=== PATIENT | male | born 1970 | race Caucasian/White ===

== ENCOUNTER 2016-11-09 19:54 | Emergency (ER) | payer OTHER ==
[~2016-11-09] VITALS: Ht 170.2 cm; Wt 93.2 kg
[2016-11-09 19:58] VITALS: TEMP 37.3; Ht 170.2 cm; Wt 93.2 kg
[2016-11-09 20:40] VITALS: O2SAT 95
[2016-11-09 20:43] LABS: BASO % 0.6 %; BASO ABS # 0.05 K/uL (0-0.2); COMPLETE YES; EOS % 1.1 %; HEMATOCRIT 44.8 % (42-52); IG% 0.1 %; LYMPH % 26.4 %; LYMPH ABS # 2.15 K/uL (1.2-3.4); MEAN CORPUSCULAR HEMOGLOBIN 29.9 pg (25-34); MEAN CORPUSCULAR HGB CONC 34.8 g/dl (32-36); MEAN PLATELET VOLUME 10.5 fL (7.4-10.4); MONO % 3.7 %; NEUT % 68.1 %; PLATELET COUNT 223 K/uL (130-400); RED BLOOD COUNT 5.21 M/uL (4.7-6.1); WHITE BLOOD COUNT 8.15 K/uL (4.8-10.8)
[2016-11-09 20:54] LABS: INR 1.1 (0.9-1.1); PARTIAL THROMBOPLASTIN RATIO 1.2; PROTHROMBIN TIME (PATIENT) 11.7 SECONDS (9.0-12.0)
[2016-11-09 20:58] LABS: POINT OF CARE TROPONIN I 0.01 ng/ml (0-0.045)
[2016-11-09 21:05] LABS: BUN/CREATININE RATIO 15.7 (10-20); CREATININE 0.87 mg/dl (0.60-1.40); POTASSIUM 3.7 mmol/L (3.5-5.1)
[2016-11-09] MEDS ORDERED: DVN80 PO (21:13)
[2016-11-09] MEDS ORDERED: ACET-1256 PO (21:13)
[2016-11-09] MEDS ORDERED: VITA100C2 PO (21:13)
[2016-11-09] MEDS ORDERED: OMEG10007 PO (21:13)
[2016-11-09] MEDS ORDERED: QUERTAB PO (21:13)
--- NOTE | 2016-11-09 21:17 | DIAGNOSTIC IMAGING REPORT ---
TWO VIEW CHEST CLINICAL HISTORY: Chest discomfort. Hypertension. FINDINGS: PA and lateral chest radiographs are obtained. No prior studies are available for comparison at the time of dictation. The cardiomediastinal silhouette is unremarkable. The lungs and pleural spaces are clear. There is no pneumothorax. The bony thorax appears intact. IMPRESSION: No active disease in the chest. Electronically signed by: Cuate Fraser M.D. 11/09/2016 9:16 PM Dictated Date/Time: 11/09/2016 9:16 PM
[2016-11-09 21:36] VITALS: BP 152/82; PULSE 61; O2SAT 94
--- NOTE | 2016-11-09 22:26 | EMERGENCY ROOM VISIT NOTE ---
History Report prepared by Milla: Evaristo Holm Under the Supervision of: Dr. Rob Lopez M.D. First contact with patient: 20:05 Chief Complaint: CHEST PAIN Stated Complaint: CHEST DISCOMFORT, HEADACHE, SHAKEY History of Present Illness The patient is a 46 year old male who presents to the Emergency Room with complaints of waxing and waning chest "pounding" beginning 5-6 weeks ago. He describe the pain as a "discomfort" and states "I can just feel my heart pumping and it's uncomfortable". The patient states that his chest "pounding" is improved when he is running on the treadmill. He also complains of a slight cough. He feels that his symptoms are worsened with stress. The patient states that he has been very stressed lately with his job. He states that he has felt very anxious and jittery lately. He states that his "pounding" becomes a pain with some shortness of breath when his job gets especially stressful, like on the weekends. 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 The patient also complains of a headache which began about 6 weeks ago. He states that he was found to have high blood pressure a little less than two months ago and has been trying to treat it through diet and exercise. He feels that his blood pressure has been running high lately and found it to be around 170/120 today. The patient states that he took his friend's Diovan today which improved his symptoms. He has not spoken with his PCP about his symptoms as they began following his most recent visit. He denies any fevers, or abnormal leg pain or swelling. He denies any recent long travel. Source of History: patient Onset: 5-6 weeks ago Position: chest Quality: other ("pounding") Timing: waxes/wanes Modifying Factors (Worsening): other (stress) Modifying Factors (Relieving): other (Diovan) Associated Symptoms: + cough, + headache, No fevers Note: The patient denies any abnormal leg pain or swelling Review of Systems See HPI for pertinent positives & negatives. A total of 10 systems reviewed and were otherwise negative. Past Medical & Surgical Medical Problems: (1) HTN (hypertension) Family History No pertinent family history stated. Social History Smoking Status: Former Smoker Occupation Status: employed Current/Historical Medications Scheduled Acetaminophen (Tylenol), 1,000 MG PO PRN UD Fish Oil (Aylett-3), 1 CAP PO BID Valsartan (Diovan), 80 MG PO TODAY Scheduled PRN Quercetin (Quercetin), Unknown Dose PO DAILY PRN for IMMUNITY Vitamin E (Vitamin E 100 Iu), Unknown Dose PO 3XWK PRN for Physical Exam Vital Signs Date Time Temp Pulse Resp B/P Pulse Ox O2 Delivery O2 Flow Rate FiO2 11/09/16 21:36 61 18 152/82 94 Room Air 11/09/16 20:41 67 20 144/88 94 Room Air 11/09/16 20:40 95 Room Air 11/09/16 20:26 68 11/09/16 20:17 Room Air 11/09/16 19:58 37.3 74 20 148/98 95 Room Air Physical Exam Constitutional: Vital signs reviewed. Eyes: Pupils are equal round reactive to light. Conjunctiva are noninjected. ENT: Pharynx is clear without erythema or exudate. Mucous membranes are moist. Neck supple without meningeal signs. Respiratory: Clear to auscultation bilaterally. Breath sounds are equal bilaterally. Cardiovascular: Regular rate and rhythm. No rubs or gallops. GI: Soft, nondistended and nontender. Bowel sounds are present. Musculoskeletal: No peripheral edema. No lower extremity tenderness. Integumentary: No cyanosis. Neurological: The patient is awake and alert. No focal deficits. Psychiatric: Anxious appearing. Medical Decision & Procedures ER Provider Diagnostic Interpretation: X-ray results as stated below per interpretation by me and the radiologist: TWO VIEW CHEST FINDINGS: PA and lateral chest radiographs are obtained. No prior studies are available for comparison at the time of dictation. The cardiomediastinal silhouette is unremarkable. The lungs and pleural spaces are clear. There is no pneumothorax. The bony thorax appears intact. IMPRESSION: No active disease in the chest. Electronically signed by: Cuate Fraser M.D. Laboratory Results 11/09/16 20:35 Red Blood Count 5.21, Mean Corpuscular Volume 86.0, Mean Corpuscular Hemoglobin 29.9, Mean Corpuscular Hemoglobin Concent 34.8, Mean Platelet Volume 10.5, Neutrophils (%) (Auto) 68.1, Lymphocytes (%) (Auto) 26.4, Monocytes (%) (Auto) 3.7, Eosinophils (%) (Auto) 1.1, Basophils (%) (Auto) 0.6, Neutrophils # (Auto) 5.55, Lymphocytes # (Auto) 2.15, Monocytes # (Auto) 0.30, Eosinophils # (Auto) 0.09, Basophils # (Auto) 0.05 11/09/16 20:35 Test 11/09/16 20:35 11/09/16 20:38 White Blood Count 8.15 K/uL (4.8-10.8) Red Blood Count 5.21 M/uL (4.7-6.1) Hemoglobin 15.6 g/dL (14.0-18.0) Hematocrit 44.8 % (42-52) Mean Corpuscular Volume 86.0 fL (80-100) Mean Corpuscular Hemoglobin 29.9 pg (25-34) Mean Corpuscular Hemoglobin Concent 34.8 g/dl (32-36) Platelet Count 223 K/uL (130-400) Mean Platelet Volume 10.5 fL (7.4-10.4) Neutrophils (%) (Auto) 68.1 % Lymphocytes (%) (Auto) 26.4 % Monocytes (%) (Auto) 3.7 % Eosinophils (%) (Auto) 1.1 % Basophils (%) (Auto) 0.6 % Neutrophils # (Auto) 5.55 K/uL (1.4-6.5) Lymphocytes # (Auto) 2.15 K/uL (1.2-3.4) Monocytes # (Auto) 0.30 K/uL (0.11-0.59) Eosinophils # (Auto) 0.09 K/uL (0-0.5) Basophils # (Auto) 0.05 K/uL (0-0.2) RDW Standard Deviation 40.8 fL (36.4-46.3) RDW Coefficient of Variation 13.0 % (11.5-14.5) Immature Granulocyte % (Auto) 0.1 % Immature Granulocyte # (Auto) 0.01 K/uL (0.00-0.02) Prothrombin Time 11.7 SECONDS (9.0-12.0) Prothromb Time International Ratio 1.1 (0.9-1.1) Activated Partial Thromboplast Time 29.9 SECONDS (21.0-31.0) Partial Thromboplastin Ratio 1.2 Anion Gap 9.0 mmol/L (3-11) Est Creatinine Clear Calc Drug Dose 115.5 ml/min Estimated GFR () 120.0 Estimated GFR (Non- 103.5 BUN/Creatinine Ratio 15.7 (10-20) Calcium Level 9.0 mg/dl (8.5-10.1) Bedside D-Dimer 93 ng/mlFEU (0-450) Bedside Troponin I 0.010 ng/ml (0-0.045) Laboratory results as reviewed by me. ECG Indication: chest pain Rate (beats per minute): 76 Rhythm: sinus rhythm Findings: no acute ischemic change, no ectopy ED Course 2006: The patient was evaluated in room C6. A complete history and physical exam was performed. 2120: Upon reevaluation, the patient appeared to have improvement of his symptoms. I discussed tonight's findings with him. He verbalized agreement of the treatment plan. I recommended an outpatient stress test and further evaluation. The patient was discharged home. Medical Decision This is a 46-year-old male who presents with chest discomfort. Differential diagnosis includes anxiety, poorly controlled hypertension, unstable angina, [place] , pleurisy, GERD. I did perform a limited focused review of portions of the patient's old chart on the electronic medical record. The patient has had no recent pertinent visits to this hospital. I did evaluate the patient as noted above. The patient is presenting with chest discomfort which he describes as a pounding of his heart when he gets stressed. He has had it fairly persistently for the past 6 weeks. He also has elevated blood pressure which she has been trying to control with diet and exercise. He was a previous smoker. He denies any family history of heart disease. IV access was established. The patient was placed on a continuous cardiac exercise physiologist. I did order and personally review the patient's 12-lead EKG and chest x-ray as described above. His 12-lead EKG does not demonstrate any acute ischemic changes. His chest x-ray does not show any acute abnormalities. I did order and review the patient's blood work as noted in the electronic medical record. Troponin is negative. D-dimer is negative. I did discuss the test results with the patient. His blood pressure is improved. I did discussed the limitations of the workup done here in the emergency department regarding his chest discomfort. He was advised to follow up closely with his doctor for further evaluation and likely outpatient stress testing and help with control of his blood pressure and anxiety. The patient was discharged in good condition. Impression Primary Impression: Acute chest pain Scribe Attestation The scribe's documentation has been prepared under my direct and personally reviewed by me in its entirety. I confirm that the note above accurately reflects all work, treatment, procedures, and medical decision making performed by me. Departure Information Dispostion Home / Self-Care Referrals Saravanan Jean-Baptiste MD (PCP) Forms HOME CARE DOCUMENTATION FORM, IMPORTANT VISIT INFORMATION Patient Instructions ED Chest Pain Atypical Unkn Cause, My [facility] Additional Instructions You have been examined and treated today on an emergency basis only. This is not a substitute for, or an effort to provide, complete comprehensive medical care. It is impossible to recognize and treat all injuries or illnesses in a single emergency department visit. It is therefore important that you follow up closely with your physician. Call as soon as possible for an appointment. Return for worsening symptoms or if you develop profuse sweating, shortness of breath, severe headache or any other concerning symptoms.
== END 2016-11-09 21:46 | disposition home or self-care (01) ==
LOC: C.EDB 19:56 → C.EDC 21:46
DX: R07.9 Chest pain, unspecified (principal); I10 Essential (primary) hypertension; Z87.891 Personal history of nicotine dependence